=== PATIENT | female | born 1945 | race Caucasian/White ===

== ENCOUNTER 2016-11-11 22:42 | Emergency (ER) | payer MEDICARE, OTHER ==
[2016-11-12] MEDS ORDERED: CEFTRIAXONE 1 GM VIAL ONE (02:40)
[2016-11-12] MEDS ORDERED: SODIUM CHLORIDE 0.9% 100 ML IV ONE (02:40)
== END 2016-11-12 02:59 | disposition home or self-care (01) ==
LOC: ER 22:42
DX: R20.9 Unspecified disturbances of skin sensation (principal); N30.00 Acute cystitis without hematuria
CPT/HCPCS: 36415; 70450; 80053; 81001; 82553; 84484; 85025; 85610; 85730; 87088; 93005; 96374; 99284; J0696